=== PATIENT | female | born 1995 | race Caucasian/White ===

== ENCOUNTER 2022-09-11 09:08 | Outpatient (CLI) | payer MEDICAID | END 2022-09-11 23:59 | disposition home or self-care (01) | LOC: RAD 09:08 | PROVIDERS: ATTEND General Practice | DX: R94.31 Abnormal electrocardiogram [ECG] [EKG] (principal); F11.20 Opioid dependence, uncomplicated | CPT/HCPCS: 93005 ==

== ENCOUNTER 2022-10-03 09:19 | Outpatient (CLI) | payer MEDICAID | END 2022-10-03 23:59 | disposition home or self-care (01) | LOC: RAD 09:19 | PROVIDERS: ATTEND General Practice | DX: F11.20 Opioid dependence, uncomplicated (principal) | CPT/HCPCS: 93005 ==